=== PATIENT | female | born 1960 ===

== ENCOUNTER 2020-11-16 06:38 | Day surgery (SDC) | payer OTHER ==
[~2020-11-16] VITALS: Ht 165.1 cm; Wt 99.9 kg
== END 2020-11-16 08:50 | disposition home or self-care (01) ==
LOC: ORSCSDS 06:38
PROVIDERS: Surgery
PROC: 0DB68ZX Excision of Stomach, Via Natural or Artificial Opening Endoscopic, Diagnostic (ICD-10-PCS; principal; 2020-11-16 08:15)
DX: R11.0 Nausea (principal); R10.13 Epigastric pain; K44.9 Diaphragmatic hernia without obstruction or gangrene; R19.7 Diarrhea, unspecified; E11.9 Type 2 diabetes mellitus without complications; I10 Essential (primary) hypertension; Z79.899 Other long term (current) drug therapy
CPT/HCPCS: 82947; 88305; 88342; J0330; J0461; J2405; J2704; J7120

== ENCOUNTER → 2020-11-16 | Outpatient (CLI) | payer OTHER ==
[~2020-11-16] MED LIST: ALLEGRA ALLERG180 MG PO; CALCIUM CIT 311 EACH PO; Crestor20 MG PO; FAMO40 PO; LEVSOD112 PO; OXYB5 PO; SITA100T2 PO; VENL75ER PO; ZESTRIL40 M1 PO
== END | disposition home or self-care (01) ==
LOC: LAB 09:13 → LAB SHORT 09:13
DX: L98.9 Disorder of the skin and subcutaneous tissue, unspecified (principal)
CPT/HCPCS: 88304